=== PATIENT | male | born 1980 | race Caucasian/White ===

== ENCOUNTER 2016-10-07 10:45 | Emergency (ER) | payer BC ==
[~2016-10-07] VITALS: Ht 188 cm; Wt 153.0 kg
[2016-10-07] MEDS ORDERED: SODIUM CHLORIDE 0.9% 1,000 ML IV ONE (12:15)
[2016-10-07] MEDS ORDERED: ACETAMINOPHEN 500 MG TABLET ONE (12:29)
[2016-10-07] MEDS ORDERED: SODIUM CHLORIDE FLUSH 10ML SYR IVF ONE (12:30)
[2016-10-07] MEDS ORDERED: SODIUM CHLORIDE 0.9% 1,000ML IVBOLUS ONE (12:30)
[2016-10-07] MEDS ORDERED: ACETAMINOPHEN 500 MG TABLET PO ONE (12:30)
[2016-10-07] MEDS ORDERED: IBUPROFEN 200 MG TABLET PO ONE (13:00)
[2016-10-07 13:15] LABS: BLOOD UREA NITROGEN 12 mg/dL (7-18)
[2016-10-07] MEDS ORDERED: IBUPROFEN 200 MG TABLET ONE (13:16)
[2016-10-07] MEDS ORDERED: CEFAZOLIN PMX 1GM/50ML 50 ML IV ONE (13:30)
[2016-10-07] MEDS ORDERED: SULFAMETH./TRIMETHOPRIM DS 800MG/160MG TABLET PO ONE (13:30)
[2016-10-07 13:36] VITALS: BP 154/64
[2016-10-07 14:16] LABS: DIFF TOTAL CELLS COUNTED 100 CELL DIFF
[2016-10-07 14:18] LABS: VERIFY COUNTS? YES
[2016-10-07 14:19] LABS: ANISOCYTOSIS 1+; LARGE PLATELETS 1+
== END 2016-10-07 14:11 | disposition home or self-care (01) ==
LOC: ED 13:28
DX: L03.116 Cellulitis of left lower limb (principal); R50.81 Fever presenting with conditions classified elsewhere
CPT/HCPCS: 36415; 71010; 80048; 82040; 83605; 83880; 84145; 85025; 87040; 93005; 93971; 96361; 96365; 99285; J0690; J7030